=== PATIENT | male | born 1975 | race Caucasian/White ===

== ENCOUNTER 2017-06-28 11:44 | Emergency (ER) | payer MEDICAID, OTHER ==
[2017-06-28 11:53] VITALS: TEMP 97.6
[2017-06-28] MEDS ORDERED: Sodium Chloride 0.9% 1,000 ML IV ONE (12:25)
[2017-06-28] MEDS ORDERED: DiphenhydrAMINE 50 mg/ml Inj IVP STA (12:25)
[2017-06-28] MEDS ORDERED: DiphenhydrAMINE 50 mg/ml Inj ONE (12:33)
[2017-06-28 12:37] LABS: BASO % 0.3 % (0.0-2.0); EOS % 0.3 % (0.0-4.0); HEMATOCRIT 47.9 % (35.0-51.0); LYMPH # 1.5 K/uL (1.0-4.3); MEAN CELL VOLUME 81.1 fL (80.0-94.0); MEAN CORPUSCULAR HEMOGLOBIN 27.4 pg (27.0-31.0); MEAN CORPUSCULAR HGB CONC 33.7 g/dL (33.0-37.0); MEAN PLATELET VOLUME 9.3 fL (7.2-11.7); MONO # 0.3 K/uL (0.0-0.8); MONO % 3.1 % (0.0-10.0); NRBC % 0.1 % (0.0-2.0); RED CELL DISTRIBUTION WIDTH 13.2 % (11.5-14.5); WHITE BLOOD COUNT 8.8 K/uL (4.8-10.8)
[2017-06-28 13:18] LABS: ALB/GLOB RATIO 1.1 (1.0-2.1); ALKALINE PHOSPHATASE 80 U/L (38-126); ALT/SGPT 49 U/L (21-72); AST/SGOT 29 U/L (17-59); BLOOD UREA NITROGEN 15 mg/dL (9-20); CALCIUM 8.8 mg/dl (8.6-10.4); CARBON DIOXIDE 29 mmol/L (22-30); CHLORIDE 100 mmol/L (98-107); GFR AFRICAN-AMERICAN > 60; GLUCOSE,RANDOM 261 mg/dL (75-110); POTASSIUM 4.2 mmol/L (3.6-5.2); SODIUM 137 mmol/L (132-148); TOTAL PROTEIN 7.7 g/dL (6.3-8.3)
--- NOTE | 2017-06-28 13:26 | C.PDOC ---
History Of Present Illness 41 year old male presents to ED for evaluation of syncopal episode today. Patient states that he woke up this morning with diffuse itching, took a hot shower, and felt generalized weakness after the shower. Notes he then sat down on the couch, and had LOC, witnessed by ; episode lasted less than a minute. Pt has history of diabetes, and blood sugars are typically well controlled. Patient admits he took an ayurvedic herb last night, and thinks that may have caused the itching. Patient denies shortness of breath, chest pain, palpitations, n/v/d, abdominal pain, nausea/vomiting/diarrhea, or dysuria. Time Seen by Provider: 06/28/17 11:53 Chief Complaint (Nursing): Syncope History Per: Patient History/Exam Limitations: no limitations Onset/Duration Of Symptoms: Hrs Current Symptoms Are (Timing): Still Present Activity At Onset Of Symptoms: Sitting Additional History Per: Family () Past Medical History Reviewed: Historical Data, Nursing Documentation, Vital Signs Vital Signs: Last Vital Signs Temp 97.6 F 06/28/17 11:52 Pulse 79 06/28/17 16:17 Resp 18 06/28/17 16:17 BP 126/77 06/28/17 16:17 Pulse Ox 99 06/28/17 16:51 - Medical History PMH: Hypercholesterolemia Family History: States: No Known Family Hx - Social History Hx Alcohol Use: No Hx Substance Use: No - Immunization History Hx Tetanus Toxoid Vaccination: No Hx Influenza Vaccination: No Hx Pneumococcal Vaccination: No Review Of Systems Except As Marked, All Systems Reviewed And Found Negative. Constitutional: Negative for: Fever, Chills Cardiovascular: Negative for: Chest Pain, Palpitations Respiratory: Negative for: Cough, Shortness of Breath Gastrointestinal: Negative for: Nausea, Vomiting, Abdominal Pain, Diarrhea Genitourinary: Negative for: Dysuria, Hematuria Skin: Positive for: Other (diffuse itching). Negative for: Rash Neurological: Positive for: Other (syncope). Negative for: Weakness, Numbness, Headache, Dizziness Physical Exam - Physical Exam Appears: Well, Non-toxic, No Acute Distress Skin: Warm, Dry, Rash (scattered urticaria and scratch vital on chest, back, and extremities) Head: Atraumatic, Normacephalic Eye(s): bilateral: Normal Inspection, PERRL, EOMI Oral Mucosa: Moist Neck: Normal, Normal ROM, No Midline Cervical Tenderness, No Paracervical Tenderness, No Step Off Deformity, Supple Cardiovascular: Rhythm Regular Respiratory: Normal Breath Sounds, No Rales, No Rhonchi, No Wheezing Gastrointestinal/Abdominal: Normal Exam, Bowel Sounds, Soft, No Tenderness Extremity: Normal ROM, No Deformity Extremity: Bilateral: Atraumatic, Normal Color And Temperature, Normal ROM Neurological/Psych: Oriented x3, Normal Speech, Normal Cognition, Normal Cranial Nerves, No Cerebellar Signs, Normal Motor, Normal Sensation, No Dysarthria, No Romberg Gait: Steady ED Course And Treatment - Laboratory Results Result Diagrams: 06/28/17 12:31 06/28/17 12:31 ECG: Interpreted By Me, Viewed By Me ECG Rhythm: Sinus Rhythm ECG Interpretation: No Acute Changes Interpretation Of ECG: Normal axis. No acute ST/T wave changes. Rate From EC (bpm) O2 Sat by Pulse Oximetry: 99 (RA) Pulse Ox Interpretation: Normal - CT Scan/US Head CT Other Rad Studies (CT/US): Read By Radiologist, Radiology Report Reviewed CT/US Interpretation: Accession No. : [id number]. Patient Name / ID : LYUDMILA HINDS / [id number]. Exam Date : 06/28/2017 14:13:04 ( Approved ). Study Comment : Sex / Age : M / 41Y. Creator : Edis Orosco MD. Dictator : Edis Orosco MD. Production Recorder : Warpman : Edis Orosco MD. Approver2 : Report Date : 06/28/2017 14:43:42. My Comment : . PROCEDURE: CT HEAD WITHOUT CONTRAST. HISTORY: syncope. COMPARISON: None available. TECHNIQUE: Axial computed tomography images were obtained through the head/brain without intravenous contrast. Radiation dose: Total exam DLP = 868.03 mGy-cm. This CT exam was performed using one or more of the following dose reduction techniques: Automated exposure control, adjustment of the mA and/ or kV according to patient size, and/or use of iterative reconstruction technique. FINDINGS: HEMORRHAGE: No intracranial hemorrhage. BRAIN: No mass effect or edema. No atrophy or chronic microvascular ischemic changes. VENTRICLES: Unremarkable. No hydrocephalus. CALVARIUM: Unremarkable. PARANASAL SINUSES: There is mucosal retention cyst versus polyp extending from the left maxillary sinus to the posterior aspect of the nasal cavity measures 4.5 centimeter in the largest diameter. Otherwise the sinuses are clear. MASTOID AIR CELLS: Unremarkable as visualized. No inflammatory changes. OTHER FINDINGS: None. IMPRESSION: No evidence of acute intracranial hemorrhage mass effect or midline shift. Mucosal retention cyst versus polyp at the left maxillary sinus extending to the nasal cavity. Progress Note: Blood work, head CT, EKG ordered and reviewed. Patient was given IV Benadryl, and IV NS bolus. Reevaluation Time: 16:10 Reassessment Condition: Improved (On reassessment, patient states he feels much better, has no current dizziness, weakness, or other symptoms. Blood work, CT head and EKG WNL. Vitals are WNL, and patient is well appearing and comfortable being discharged home. Patient instructed to drink plenty of fluids , eat regularly, and to follow up with medical clinic in 1-2 days. He understands he should return to ED if symptoms worsen.) Disposition Counseled Patient/Family Regarding: Studies Performed, Diagnosis, Need For Followup, Rx Given - Disposition Referrals: [facility] [Outside] Disposition: HOME/ ROUTINE Disposition Time: 16:10 Condition: STABLE Additional Instructions: FOLLOW UP WITH YOUR DOCTOR IN 1-2 DAYS DRINK PLENTY OF FLUIDS RETURN TO ER IF SYMPTOMS WORSEN Instructions: Syncope (ED) Forms: [employer] (Vietnamese) Print Language: ITALIAN - POA Present On Arrival: None - Clinical Impression Clinical Impression: Syncope, Allergic reaction - Scribe Statement The provider has reviewed the documentation as recorded by the Vikiibturner Haywood All medical record entries made by the Scribe were at my direction and personally dictated by me. I have reviewed the chart and agree that the record accurately reflects my personal performance of the history, physical exam, medical decision making, and the department course for this patient. I have also personally directed, reviewed, and agree with the discharge instructions and disposition.
[2017-06-28 14:34] VITALS: RESP 18
--- NOTE | 2017-06-28 14:45 | CT ---
PROCEDURE: CT HEAD WITHOUT CONTRAST. HISTORY: syncope COMPARISON: None available. TECHNIQUE: Axial computed tomography images were obtained through the head/brain without intravenous contrast. Radiation dose: Total exam DLP = 868.03 mGy-cm. This CT exam was performed using one or more of the following dose reduction techniques: Automated exposure control, adjustment of the mA and/or kV according to patient size, and/or use of iterative reconstruction technique. FINDINGS: HEMORRHAGE: No intracranial hemorrhage. BRAIN: No mass effect or edema. No atrophy or chronic microvascular ischemic changes. VENTRICLES: Unremarkable. No hydrocephalus. CALVARIUM: Unremarkable. PARANASAL SINUSES: There is mucosal retention cyst versus polyp extending from the left maxillary sinus to the posterior aspect of the nasal cavity measures 4.5 centimeter in the largest diameter. Otherwise the sinuses are clear. MASTOID AIR CELLS: Unremarkable as visualized. No inflammatory changes. OTHER FINDINGS: None. IMPRESSION: No evidence of acute intracranial hemorrhage mass effect or midline shift. Mucosal retention cyst versus polyp at the left maxillary sinus extending to the nasal cavity.
[2017-06-28 16:17] VITALS: BP 126/77; PULSE 79
[2017-06-28 16:52] VITALS: O2SAT 99
== END 2017-06-28 16:19 | disposition home or self-care (01) ==
LOC: C.ER 11:44
DX: R55 Syncope and collapse (principal); T78.49XA Other allergy, initial encounter; X58.XXXA Exposure to other specified factors, initial encounter
CPT/HCPCS: 70450; 80053; 82550; 82553; 84484; 85025; 96361; 96374; 99285; J1200; J7040